=== PATIENT | female | born 1965 | race Caucasian/White ===

== ENCOUNTER 2016-05-02 10:10 | Emergency (ER) | payer BC ==
[~2016-05-02] VITALS: Ht 175.3 cm; Wt 56.7 kg
[2016-05-02] MEDS ORDERED: IV NORMAL SALINE 1000ML BAG 1,000 ML IV SCH (10:47)
--- NOTE | 2016-05-02 10:54 | EKG ---
[facility] [address] [place] [address] Test Date: 2016-05-02 Test Time: 10:24:39 Pat Name: LAUREN BARAHONA Department: Room: Gender: F Senior Specialist: : [id number] Requested By: Rubi GUTIERREZ Order Number: [id number] Reading MD: Guille Gonzalez Measurements Intervals [place] Rate: 96 P: 75 [place]: 148 QRS: 87 QRSD: 78 T: 72 QT: 324 QTc: 410 Interpretive Statements SINUS RHYTHM NORMAL ECG RI6.01 Unconfirmed report No previous ECG available for comparison Electronically Signed On 05-03-2016 14:12:08 EXHIBITION DESIGNER by Guille Gonzalez
[2016-05-02] MEDS ORDERED: MECLIZINE HCL 12.5 MG TABLET. PO ONE (11:00)
[2016-05-02 11:10] LABS: CALCIUM 8.1 mg/dL (8.5-10.1); CREATININE 0.7 mg/dL (0.6-1.0); GFR 88.2; POTASSIUM 3.4 mmol/L (3.5-5.1)
--- NOTE | 2016-05-02 11:12 | PHYS DOC ---
Past Medical History Past Medical History: No Pertinent History Past Surgical History: , Hysterectomy Smoking: Quit Less Than 1 Year (quit 2 weeks ago) Alcohol Use: Occasionally Drug Use: None Adult General Chief Complaint Chief Complaint: SYNCOPE HPI HPI Patient is a 51 year old female who presents with 4 days of cough, rhinorrhea, fever or chills, myalgia, headaches and fatigue. She had one episode of syncope last night with preceding lightheadedness. She also had one episode of watery diarrhea yesterday. She notes 2 days of dizziness upon standing or moving her head that is severe in onset and fatigues quickly. She denies ear pain, tinnitus , neck pain or manipulation, chest pain, dyspnea, abdominal pain, rash, numbness , tingling, weakness, falls. Review of Systems Review of Systems Constitutional: Has fever and chills [] Eyes: Denies change in visual acuity, redness, or eye pain [] HENT: Denies nasal congestion or sore throat [] Respiratory: Denies shortness of breath [] Cardiovascular: No additional information not addressed in HPI [] GI: Denies abdominal pain, nausea, vomiting, bloody stools [] : Denies dysuria or hematuria [] Musculoskeletal: Denies back pain or joint pain [] Integument: Denies rash or skin lesions [] Neurologic: Denies focal weakness or sensory changes [] Endocrine: Denies polyuria or polydipsia [] Current Medications Current Medications Current Medications Medications (Trade) Dose Ordered Sig/Bartolome Start Time Stop Time Status Last Admin Dose Admin Meclizine HCl (Antivert) 25 mg 1X ONCE 05/02/16 11:00 05/02/16 11:01 DC 05/02/16 10:58 25 MG Sodium Chloride (Iv Sodium Chloride 0.9% 1000ml Bag) 1,000 ml @ 1,000 mls/hr Q1H 05/02/16 10:47 05/02/16 11:46 DC 05/02/16 10:58 1,000 MLS/HR Allergies Allergies Allergies Coded Allergies Type Severity Reaction Last Updated Verified No Known Drug Allergies 05/02/16 No Physical Exam Physical Exam Constitutional: Well developed, well nourished, no acute distress, non-toxic appearance. [] HENT: Normocephalic, atraumatic, bilateral TMs normal, oropharynx moist, no oral exudates, nose normal. [] Eyes: PERRLA, EOMI, conjunctiva normal, no discharge. [] Neck: Normal range of motion, no tenderness, supple, no stridor. [] Cardiovascular:Heart rate regular rhythm [] Lungs & Thorax: Bilateral breath sounds clear to auscultation [] Abdomen: Bowel sounds normal, soft, no tenderness. [] Skin: Warm, dry, no erythema, no rash. [] Back: No tenderness, no CVA tenderness. [] Extremities: No tenderness, ROM intact, no edema. [] Neurologic: Alert and oriented X 3, normal motor function, normal sensory function, no focal deficits noted, cranial nerves II through XII intact, no extremity drift, normal finger to nose, no nystagmus. [] Psychologic: Affect normal, judgement normal, mood normal. [] Current Patient Data Vital Signs Vital Signs Date Time Temp Pulse Resp B/P Pulse Ox O2 Delivery O2 Flow Rate FiO2 05/02/16 12:50 84 13 106/54 93 Room Air 05/02/16 10:15 101.4 101.4 Lab Values Laboratory Tests Test 05/02/16 10:26 05/02/16 10:30 Influenza Type A Antigen Negative (NEGATIVE) Influenza Type B Antigen Positive (NEGATIVE) Sodium Level 143mmol/L (136-145) Potassium Level 3.4mmol/L (3.5-5.1) L Chloride Level 106mmol/L (98-107) Carbon Dioxide Level 26mmol/L (21-32) Anion Gap 11 (6-14) Blood Urea Nitrogen 8mg/dL (7-20) Creatinine 0.7mg/dL (0.6-1.0) Estimated GFR (Cockcroft-Gault) 88.2 Glucose Level 98mg/dL (70-99) Calcium Level 8.1mg/dL (8.5-10.1) L Laboratory Tests 05/02/16 10:30 EKG EKG EKG as interpreted by me as normal sinus rhythm, rate 96, no ST-T changes, normal intervals, no ectopy Radiology/Procedures Radiology/Procedures Chest xray as interpreted by me with no acute cardiopulmonary disease process Course & Med Decision Making Course & Med Decision Making Pertinent Labs and Imaging studies reviewed. (See chart for details) She is positive for influenza, but workup is otherwise unremarkable. She is feeling better after medications. Discussed symptomatic care. Return precautions given. She understands and agrees with plan. Dragon Disclaimer Dragon Disclaimer This electronic medical record was generated, in whole or in part, using a voice recognition dictation system. Departure Departure Impression: Primary Impression: Influenza Additional Impression: Dizziness Disposition: 01 HOME, SELF-CARE Condition: STABLE Patient Instructions: Influenza, Adult, [id number] Additional Instructions: Drink liquids to stay hydrated. Take meclizine as needed for dizziness. Follow- up with your primary care doctor within one week. Return for any concerns. Scripts Meclizine Hcl 25 Mg Tablet1 Tab PO PRN TID PRN DIZZINESS #20 TAB Prov:Rubi GUTIERREZ MD 05/02/16 Problem Qualifiers Rubi GUTIERREZ MD May 02, 2016 11:12
--- NOTE | 2016-05-02 11:12 | RAD ---
Examination: Single frontal view the chest History: History of dizziness, passed out last night Comparison: None available Findings: The cardiomediastinal silhouette grossly appears unremarkable. There is no acute infiltrate or visualized pneumothorax identified. Impression: No acute cardiopulmonary findings.
[2016-05-02 11:49] LABS: OBC FLU VALID
[2016-05-02] MEDS ORDERED: MECL25TA3 PO (12:30)
[2016-05-02 12:50] VITALS: BP 106/54
== END 2016-05-02 12:52 | disposition home or self-care (01) ==
LOC: ER 10:10
DX: J10.1 Influenza due to other identified influenza virus with other respiratory manifestations (principal); R42 Dizziness and giddiness; Z87.891 Personal history of nicotine dependence
CPT/HCPCS: 36415; 71010; 80048; 87804; 93005; 96360; 99285; J7030; J8597

== ENCOUNTER → 2020-03-18 | Outpatient (CLI) | payer BC ==
[~2020-03-18] MED LIST: MECL-75 PO
--- NOTE | 2020-03-18 14:36 | CARD ---
MR#: [id number] Date of Study: 03/18/2020 Ordering Physician: ELIZABETH WASHBURN, Referring Physician: ELIZABETH WASHBURN, Tech: Cheryl Can RIAZ APPROVED REPORT EXAM: Two-dimensional and M-mode echocardiogram with Doppler and color Doppler. Other Information Quality : Fair INDICATION Palpitations Chest Pain 2D DIMENSIONS Left Atrium(2D)2.5 (1.6-4.0cm)IVSd0.7 (0.7-1.1cm) Aortic Root(2D)2.6 (2.0-3.7cm)LVDd4.6 (3.9-5.9cm) LVOT Diameter2.2 (1.8-2.4cm)PWd0.8 (0.7-1.1cm) LVDs3.4 (2.5-4.0cm)FS (%) 26.5 % SV50.5 mlLVEF(%)51.9 (>50%) Aortic Valve AoV Peak Jeffery.108.9cm/sAoV VTI19.6cm AO Peak GR.4.7mmHgLVOT Peak Jeffery.78.4cm/s AO Mean GR.3mmHgAVA (VMAX)2.73cm2 OSBALDO (VTI)2.80cm2 Mitral Valve MV E Kzwdtjqi03.0cm/sMV DECEL CYFE960sv MV A Lbghgbaz63.3cm/sE/A Ratio0.7 Tricuspid Valve TR P. Zmioioaz954kr/sRAP IFZRYFFD2owIv TR Peak Gr.32djZrNGGE81niFg Pulmonary Vein S1 Xbylluus40.2cm/sD2 Cxptujfr95.4cm/s LEFT VENTRICLE The left ventricle is normal size. There is normal left ventricular wall thickness. Left ventricle sy stolic function is normal. The Ejection Fraction is 55%. There is normal LV segmental wall motion. Tr ansmitral Doppler flow pattern is Grade I-abnormal relaxation pattern. RIGHT VENTRICLE The right ventricle is normal size. The right ventricular systolic function is normal. ATRIA The left atrium size is normal. The right atrium size is normal. The interatrial septum is intact wit h no evidence for an atrial septal defect or patent foramen ovale as noted on 2-D or Doppler imaging. AORTIC VALVE The aortic valve is calcified but opens well. Doppler and Color Flow revealed no significant aortic r egurgitation. There is no significant aortic valvular stenosis. MITRAL VALVE The mitral valve is calcified but opens well. There is no evidence of mitral valve prolapse. There is no mitral valve stenosis. Doppler and Color-flow revealed trace mitral regurgitation. TRICUSPID VALVE The tricuspid valve is normal in structure and function. Doppler and Color Flow revealed trace tricus pid regurgitation. The PA pressure was estimated at 26 mmHg. There is no tricuspid valve stenosis. PULMONIC VALVE The pulmonic valve is not well visualized. Doppler and Color Flow revealed no pulmonic valvular regur gitation. There is no pulmonic valvular stenosis. GREAT VESSELS The aortic root is normal in size. The ascending aorta is not well seen. The IVC is normal in size an d collapses >50% with inspiration. PERICARDIAL EFFUSION There is no evidence of significant pericardial effusion. Critical Notification Critical Value: No <Conclusion> Left ventricle systolic function is normal. The Ejection Fraction is 55%. There is normal LV segmental wall motion. Transmitral Doppler flow pattern is Grade I-abnormal relaxation pattern. Trace mitral regurgitation. Trace tricuspid regurgitation. The PA pressure was estimated at 26 mmHg. There is no evidence of significant pericardial effusion. Signed by : Branden Lane, Electronically Approved : 03/18/2020 14:35:38
== END ==
LOC: ECHO 10:48
PROVIDERS: ATTEND Internal Medicine
DX: I08.0 Rheumatic disorders of both mitral and aortic valves (principal); R00.2 Palpitations; R07.9 Chest pain, unspecified
CPT/HCPCS: 93306